=== PATIENT | female | born 1975 | race Caucasian/White ===

== ENCOUNTER 2019-02-15 18:46 | Outpatient (CLI) | payer SELFPAY ==
--- NOTE | 2019-02-16 14:52 | MRI Report ---
Reason: KNEE PAIN, RIGHT Procedure Date: 02/15/2019 Accession Number: [id number] / [id number] Procedure: MRI - Knee RT W/O CPT Code: FULL RESULT: EXAM: RIGHT KNEE MRI WITHOUT CONTRAST EXAM DATE: 02/15/2019 07:37 PM. CLINICAL HISTORY: Knee pain, right. COMPARISON: None. TECHNIQUE: Multiplanar, multisequence T1-weighted and fluid-sensitive sequences of the knee without contrast. Other: None. FINDINGS: Cruciate ligaments: The anterior and posterior cruciate ligaments appear intact. Medial meniscus: Intact. No tear is identified. Lateral meniscus: Intact. No tear is identified. Collateral ligaments: The medial and fibular collateral ligaments appear intact. Bones and articular surfaces: Severe cartilage thinning at the patellofemoral articulation laterally with subchondral edema, lateral patellar subluxation and marginal osteophytes. Mild cartilage thinning, fissuring and irregularity in the medial and lateral compartments with marginal osteophytes. Extensor mechanism: The patellar tendon and quadriceps insertion appear intact. IMPRESSION: 1. Severe patellofemoral osteoarthritis. 2. Mild medial and lateral compartment osteoarthritis. [facility]
== END 2019-02-15 18:47 | disposition home or self-care (01) ==
LOC: DI 18:46
PROVIDERS: ATTEND Registered Nurse
DX: M17.11 Unilateral primary osteoarthritis, right knee (principal)

== ENCOUNTER 2021-02-12 18:53 | Outpatient (CLI) | payer OTHER | END 2021-02-12 18:54 | disposition home or self-care (01) | LOC: LAB 18:53 | PROVIDERS: ATTEND Obstetrics & Gynecology | DX: Z11.1 Encounter for screening for respiratory tuberculosis (principal) | CPT/HCPCS: 36415; 86480 ==